=== PATIENT | male | born 2000 | race Caucasian/White ===

== ENCOUNTER 2018-09-30 19:33 | Emergency (ER) | payer OTHER, SELFPAY ==
[~2018-09-30] VITALS: Ht 182.9 cm; Wt 88.3 kg
[2018-09-30 19:34] VITALS: BP 135/70
--- NOTE | 2018-10-01 02:54 | REP ---
Clinical: Trauma. Technique: AP, lateral, bilateral oblique views right wrist . Findings: The carpal bones, surrounding osseous structures, soft tissues, and joint spaces are normal. There is no evidence for acute fracture or dislocation. No subcutaneous emphysema or radiodense foreign body. Impression: Normal wrist series. No acute fracture or dislocation Electronically Signed by Tj Ward MD 10/01/2018 02:46 A
--- NOTE | 2018-10-01 02:55 | REP ---
Clinical: Trauma. Technique: AP, lateral, bilateral oblique views right hand . Findings: The osseous structures and joint spaces are intact and normal. There is no evidence for acute fracture or dislocation. Surrounding soft tissues are unremarkable. No subcutaneous emphysema or radiodense foreign body. Impression: Normal right hand series . No acute fracture or dislocation. Electronically Signed by Tj Ward MD 10/01/2018 02:47 A
== END 2018-09-30 22:12 | disposition home or self-care (01) ==
LOC: M ED 19:33
DX: S60.221A Contusion of right hand, initial encounter (principal); S60.131A Contusion of right middle finger with damage to nail, initial encounter; S60.412A Abrasion of right middle finger, initial encounter; S62.001A Unspecified fracture of navicular [scaphoid] bone of right wrist, initial encounter for closed fracture; W23.0XXA Caught, crushed, jammed, or pinched between moving objects, initial encounter; Y92.410 Unspecified street and highway as the place of occurrence of the external cause; Y93.9 Activity, unspecified; Y99.9 Unspecified external cause status; Z72.0 Tobacco use